=== PATIENT | female | born 1955 | race Caucasian/White ===

== ENCOUNTER → 2017-11-08 09:55 | Outpatient (CLI) | payer MEDICAID, SELFPAY ==
--- NOTE | 2017-11-08 13:04 | NEURO ---
NCS and/or EMG Patient Report Ordering Doctor: Hao Vann DATE OF SERVICE: 11/08/17 Jocelyn Worthington is a 61-year-old female who presents for electrodiagnostic testing of the right upper limb. She has chief complaint of numbness and tingling in the right hand. Electrodiagnostic findings: The right median motor nerve demonstrates prolonged distal latency with normal amplitude and conduction velocity. Normal ulnar motor response, including conduction across the elbow. Prolonged right ulnar F wave is noted. Prolonged right median sensory distal latency. Prolonged right ulnar sensory latency is noted. Needle EMG testing showed no evidence of denervation with normal motor unit action potentials. Electrodiagnostic impression: This is an abnormal study in the right upper limb. 1. Findings demonstrate right-sided median mononeuropathy. This is consistent with a moderate right carpal tunnel syndrome. 2. Findings demonstrate right ulnar sensory neuropathy. If there are any further questions, please not hesitate contact me
== END ==
PROVIDERS: Family Provider Internal Medicine; PCP Internal Medicine; Visit Provider Orthopaedic Surgery
DX: G56.91 Unspecified mononeuropathy of right upper limb (principal); G56.01 Carpal tunnel syndrome, right upper limb
CPT/HCPCS: 95886; 95910